=== PATIENT | male | born 1960 | race Caucasian/White ===

== ENCOUNTER 2018-01-03 11:56 | Emergency (ER) | payer BC ==
[~2018-01-03] VITALS: Ht 157.5 cm; Wt 63.0 kg
[2018-01-03 11:56] VITALS: BP_SYST 133
[2018-01-03] MEDS ORDERED: MORPHINE 4 MG/ML INJ. SYRINGE IM ONE (12:15)
[2018-01-03] MEDS ORDERED: KETOROLAC TROMETHAMINE 60 MG/2 ML VIAL IM ONE (12:15)
[2018-01-03 12:45] VITALS: BP_SYST 124
== END 2018-01-03 12:45 | disposition home or self-care (01) ==
LOC: SED 11:56
DX: M54.31 Sciatica, right side (principal); R03.0 Elevated blood-pressure reading, without diagnosis of hypertension
CPT/HCPCS: 96372; 99283; J1885; J2270

== ENCOUNTER 2020-08-31 11:59 | Emergency (ER) | payer BC, SELFPAY ==
[~2020-08-31] VITALS: Ht 188 cm; Wt 83.9 kg
[2020-08-31 12:00] VITALS: BP_SYST 135
[2020-08-31] MEDS ORDERED: AMOX500C2 PO (13:56)
[2020-08-31] MEDS ORDERED: AMOXICILLIN 500 MG CAPSULE PO ONE (14:00)
[2020-08-31 14:36] VITALS: BP_SYST 135
== END 2020-08-31 14:37 | disposition home or self-care (01) ==
LOC: SED 11:59
DX: J40 Bronchitis, not specified as acute or chronic (principal); F17.290 Nicotine dependence, other tobacco product, uncomplicated; Z79.899 Other long term (current) drug therapy
CPT/HCPCS: 36415; 71045; 86403; 87081; 99284

== ENCOUNTER 2020-09-05 13:58 | Emergency (ER) | payer BC, SELFPAY ==
[~2020-09-05] VITALS: Ht 188 cm; Wt 86.2 kg
[~2020-09-05 13:58] MED LIST: AMOX500C2 PO
[2020-09-05 14:12] VITALS: BP_SYST 146
[2020-09-05] MEDS ORDERED: MAG HYDROX/AL HYDROX/SIMETH 30 ML, DICYCLOMINE HCL 20 MG, LIDOCAINE VISCOUS 2% 15ML (PO... PO ONE ×3 (15:00)
[2020-09-05 15:21] LABS: BASOPHILS % (AUTO) 0.6 % (0.0-2.0); EOSINOPHILS # (AUTO) 0.1 K/uL (0.0-0.4); EOSINOPHILS % (AUTO) 0.8 % (0.0-4.0); HEMOGLOBIN 15.8 g/dL (14.0-18.0); LYMPHOCYTES # (AUTO) 1.2 K/uL (1.0-5.5); LYMPHOCYTES % (AUTO) 15.6 % (20.5-51.5); MEAN CORPUSCULAR HEMOGLOBIN 31 pg (27-31); MEAN CORPUSCULAR HGB CONC 35 % (32-36); MEAN CORPUSCULAR VOLUME 88 fL (79.0-98.0); MONOCYTES # (AUTO) 0.5 K/uL (0.0-1.0); MONOCYTES % (AUTO) 6.5 % (1.7-9.3); NEUTROPHILS # (AUTO) 6.1 K/uL (1.8-7.7); NEUTROPHILS % (AUTO) 76.5 % (40.0-70.0); PLATELET COUNT (AUTO) 195 K/uL (130-430); RED BLOOD CELL COUNT(AUTO) 5.12 MIL/uL (4.2-6.2); RED CELL DISTRIBUTION WIDTH 13.9 % (9.0-15.0)
[2020-09-05 16:13] LABS: CALCIUM 8.8 mg/dL (8.4-11.0); CREATININE 1.35 mg/dL (0.55-1.30); POTASSIUM 4.4 mmol/L (3.5-5.1)
[2020-09-05 16:19] LABS: ALBUMIN 3.9 g/dL (3.4-4.8); TOTAL BILIRUBIN 0.6 mg/dL (0.0-1.0)
[2020-09-05] MEDS ORDERED: OMEP-393 PO (17:36)
[2020-09-05] MEDS ORDERED: ONDA-8 TL (17:36)
[2020-09-05 17:40] VITALS: BP_SYST 146
== END 2020-09-05 17:40 | disposition home or self-care (01) ==
LOC: SED 13:58
DX: K29.70 Gastritis, unspecified, without bleeding (principal); F17.290 Nicotine dependence, other tobacco product, uncomplicated; Z79.899 Other long term (current) drug therapy; Z71.6 Tobacco abuse counseling
CPT/HCPCS: 36415; 80053; 83690; 85025; 99283; J2001